=== PATIENT | male | born 1935 | race Caucasian/White ===

== ENCOUNTER → 2016-12-16 | Outpatient (REF) ==
[~2016-12-16] MED LIST: ALTACE 10MG TAB10 MG PO; ALTACE2.5 MG PO; ASPIR-LOW81 MG PO; ASPIRIN 81M81 MG/TA2 PO; CARDENE 20MG CA20 M1 PO; CLOPIDOGREL; CRESTOR; CRESTOR 10MG10 MG PO; MELOXICAM; NITROSTAT0.4 MG/TAB SL; PROTONIX 40MG T40 MG PO
[2016-12-16 19:33] LABS: THYROID STIMULATING HORMONE 1.66 uIU/mL (0.465-4.680)
== END ==
LOC: ZLAB.WCH 18:32
PROVIDERS: Family Medicine
DX: Z01.89 Encounter for other specified special examinations (principal)

== ENCOUNTER → 2017-12-17 | Outpatient (REF) ==
[2017-12-17 12:10] LABS: THYROID STIMULATING HORMONE 1.25 uIU/mL (0.465-4.680)
== END ==
LOC: ZLAB.WCH 11:06
PROVIDERS: Internal Medicine
DX: Z01.89 Encounter for other specified special examinations (principal)

== ENCOUNTER → 2018-05-02 | Outpatient (REF) | LOC: ZLAB.WCH 16:11 | DX: Z01.89 Encounter for other specified special examinations (principal) ==

== ENCOUNTER → 2019-10-15 | Outpatient (CLI) | payer MEDICARE, BC | LOC: COL.PUL 07:19 | DX: I48.91 Unspecified atrial fibrillation (principal); I49.3 Ventricular premature depolarization; Z95.810 Presence of automatic (implantable) cardiac defibrillator ==

== ENCOUNTER → 2021-11-16 | Outpatient (CLI) | payer MEDICARE, BC | LOC: COL.RAD 07:17 | DX: M47.816 Spondylosis without myelopathy or radiculopathy, lumbar region (principal); M48.061 Spinal stenosis, lumbar region without neurogenic claudication; M51.26 Other intervertebral disc displacement, lumbar region; M41.86 Other forms of scoliosis, lumbar region; Z98.890 Other specified postprocedural states ==